=== PATIENT | male | born 1995 ===

== ENCOUNTER 2018-01-04 01:53 | Emergency (ER) | payer SELFPAY ==
[2018-01-04 06:05] VITALS: BP 122/68
--- NOTE | 2018-01-04 06:40 | Emergency Department Report ---
HPI - General Chief Complaint: Allergic Reaction Time Seen by Provider: 01/04/18 06:34 - HPI HPI: Patient advised reaction to Bactrim started radiation after taking Bactrim 1 day ago rash to hands trunk there is no hives no wheezing wheezing just itching ED Past Medical Hx - Past Medical History Previous Medical History?: No - Surgical History Past Surgical History?: No - Social History Smoking Status: Never Smoker Substance Use Type: None - Medications Home Medications: Home Medications Medication Instructions Recorded Confirmed Last Taken Type Famotidine [Pepcid] 20 mg PO BID #14 tablet 01/04/18 Unknown Rx cephALEXin [Keflex] 500 mg PO Q12HR #20 cap 01/04/18 Unknown Rx diphenhydrAMINE [Benadryl CAP] 25 mg PO Q8HR #21 capsule 01/04/18 Unknown Rx predniSONE [Deltasone] 20 mg PO QDAY #5 tab 01/04/18 Unknown Rx ED Review of Systems ROS: Stated complaint: ALLERGIC REACTION TO BATRIM RX Other details as noted in HPI Constitutional: denies: chills, fever Eyes: denies: eye pain, eye discharge, vision change ENT: denies: ear pain, throat pain Respiratory: denies: cough, shortness of breath, wheezing Cardiovascular: denies: chest pain, palpitations Endocrine: no symptoms reported, intolerance to heat Gastrointestinal: denies: abdominal pain, nausea, diarrhea Genitourinary: denies: urgency, dysuria Musculoskeletal: denies: back pain, joint swelling, arthralgia Skin: denies: rash, lesions Neurological: denies: headache, weakness, paresthesias Psychiatric: denies: anxiety, depression Hematological/Lymphatic: denies: easy bleeding, easy bruising Physical Exam - Physical Exam Vital Signs: Vital Signs 01/04/18 01/04/18 03:38 06:02 Temperature 98.1 F 98.2 F Pulse Rate 63 67 Respiratory 18 18 Rate Blood Pressure 126/82 122/68 O2 Sat by Pulse 100 98 Oximetry General: The respiratory distress and alert 3 Physical Exam: No noted rashes this time lungs are clear airway is patent no stridor no wheezing or dizziness no lightheadedness shortness breath no chest pain ED Course Vital Signs 01/04/18 01/04/18 03:38 06:02 Temperature 98.1 F 98.2 F Pulse Rate 63 67 Respiratory 18 18 Rate Blood Pressure 126/82 122/68 O2 Sat by Pulse 100 98 Oximetry ED Medical Decision Making - Medical Decision Making Plan DC Bactrim start Keflex Benadryl Reglan short burst prednisone follow up PCP as scheduled in 2-3 days return to ED should symptoms worsen patient verbalizes agreement and understanding the same patient for DC'd home in stable condition at this time Critical care attestation.: If time is entered above; I have spent that time in minutes in the direct care of this critically ill patient, excluding procedure time. ED Disposition Clinical Impression: Allergic reaction caused by a drug Qualifiers: Encounter type: initial encounter Qualified Code(s): T78.40XA - Allergy, unspecified, initial encounter Disposition: DC-01 TO HOME OR SELFCARE Is pt being admited?: No Does the pt Need Aspirin: No Condition: Good Instructions: Allergies (ED) Prescriptions: cephALEXin [Keflex] 500 mg PO Q12HR #20 cap diphenhydrAMINE [Benadryl CAP] 25 mg PO Q8HR #21 capsule Famotidine [Pepcid] 20 mg PO BID #14 tablet predniSONE [Deltasone] 20 mg PO QDAY #5 tab Referrals: PRIMARY CARE, [Primary Care Provider] - 3-5 Days Forms: Work/School Release Form(ED) Time of Disposition: 06:43
[2018-01-04] MEDS ORDERED: PEPCID PO ONE (06:41)
[2018-01-04] MEDS ORDERED: BENADRYL PO ONE (06:41)
[2018-01-04] MEDS ORDERED: DELTASONE PO ONE (06:41)
== END 2018-01-04 07:00 | disposition home or self-care (01) ==
LOC: ED 01:53
DX: T78.40XA Allergy, unspecified, initial encounter (principal); Z88.2 Allergy status to sulfonamides; X58.XXXA Exposure to other specified factors, initial encounter
CPT/HCPCS: 99282; J7512